=== PATIENT | female | born 1990 | race Hispanic/Latino ===

== ENCOUNTER 2018-02-27 09:39 | Emergency (ER) | payer OTHER, SELFPAY ==
[2018-02-27 09:58] VITALS: BP 133/86; PULSE 80; RESP 12; TEMP 36.3; O2SAT 100
--- NOTE | 2018-02-27 10:06 | ED_ITS ---
HPI - General Chief complaint: OB/Uterine Contractions Stated complaint: 6 wks -bleeding/cramping Time Seen by Provider: 02/27/18 10:04 Source: patient Mode of arrival: ambulatory Limitations: no limitations History of Present Illness HPI Narrative: Patient is a at approximately 6 weeks EGA by her last menstrual cycle with a positive home test a couple weeks ago here for evaluation of 2-3 days of increasing vaginal spotting to now bleeding at the amount of a normal menstrual cycle. Does have some lower back pain. No urinary symptoms. Patient : Yes Related Data Allergies Allergy/AdvReac Type Severity Reaction Status Date / Time No Known Drug Allergies Allergy Verified 02/27/18 10:01 Review of Systems Constitutional Denies fatigue, Denies fever(s) and Denies headache(s) ENT Ears, Nose, Mouth, and Throat: Denies vertigo and Denies headache(s) Cardiovascular Denies chest pain and Denies dyspnea Respiratory Denies dyspnea Gastrointestinal Gastrointestinal: Denies abdominal pain, Reports cramping, Denies heartburn, Denies diarrhea, Denies nausea and Denies vomiting Genitourinary Comments: Vaginal bleeding at the amount of a normal menstrual cycle Musculoskeletal Denies myalgias and Denies arthralgias Integumentary/Breasts Denies lesions, Denies rash and Denies wounds Neurologic Denies vertigo and Denies headache(s) Endocrine Denies fatigue Hematologic/Lymphatic Denies easy bleeding and Denies easy bruising PMFSH - Past Medical History Medical history: Reports no medical history Surgical history: Reports no surgical history [employer] history: Denies Spontaneous Patient : Yes Exam Initial Vital Signs Initial Vital Signs: Vital Signs Temperature 97.3 F L 02/27/18 09:58 Pulse Rate 80 02/27/18 09:58 Respiratory Rate 12 02/27/18 09:58 Blood Pressure 133/86 H 02/27/18 09:58 Pulse Oximetry 100 02/27/18 09:58 Const General: cooperative, healthy appearing, comfortable, well developed and well groomed HENAZ Head: normal to inspection, normocephalic and atraumatic Resp Effort & Inspection: normal respiratory effort Cardio Rate: regular rate Rhythm: regular rhythm Pulses: radial pulses present GI Inspection: normal to inspection and non-distended Palpation: soft, No firm and No tender Back/Spine/Pelvis Back: No CVA tenderness Skin General: no rashes or lesions noted Lesions: no lesions Rashes: no rashes Neuro General: alert, awake and oriented x3 Cognition: normal cognition Speech: speech normal Extrem General: normal to inspection and normal exam except as noted Course Orders Ordered: ED Orders 02/27/18 10:05 US pelvic complete Stat 02/27/18 10:18 ABO RH Type Stat HCG Quantitative Stat Vital Signs - 8 hr 02/27/18 09:58 02/27/18 11:24 Temperature 97.3 F L 98 F Pulse Rate 80 69 Respiratory Rate 12 18 Blood Pressure 133/86 H Blood Pressure [Left Arm] 123/73 H Pulse Oximetry 100 98 MDM - OB/Uterine Contractions Lab Data Attestation: I reviewed the patient's lab results. Lab Results 02/27/18 02/27/18 Range/Units 10:18 10:18 HCG, Quant 107.32 mIU/mL Blood Type A Positive MDM Narrative Medical decision making narrative: Patient with an HCG quant today of just over 100 in the setting of having a positive test 2 weeks ago is concerning for a threatened miscarriage. Patient states she had plans on calling her OB provider on Thursday for follow-up. She was instructed to continue to do this to establish follow-up care. She was given return precautions. She expressed understanding and agreement with plan. Will hold on pelvic ultrasound for now secondary to the low HCG quant. Discharge Plan Departure Patient Disposition: Home, Self-Care Clinical Impression: Threatened Instructions: Dealing With Miscarriage, DI for Miscarriage Activity Restrictions/Additional Instructions: Would recommend that you call your OB provider on Thursday to discuss further workup. Return to the emergency department for any new symptoms, worsening pain , bleeding more than 1 pad an hour for more than 4 consecutive hours fevers, or any other concerning symptoms. Recommend that you continue taking your vitamins.
[2018-02-27 11:11] LABS: HCG Quantitative /Beta subunit 107.32 mIU/mL
[2018-02-27 11:24] VITALS: BP 123/73; PULSE 69; RESP 18; TEMP 36.6; O2SAT 98
== END 2018-02-27 11:47 | disposition home or self-care (01) ==
PROVIDERS: Emergency Provider Emergency Medicine
DX: O20.0 Threatened abortion (principal)
CPT/HCPCS: 36415; 84702; 86900; 86901; 99282; 99284

== ENCOUNTER 2018-12-16 02:13 | Outpatient (CLI) | payer OTHER, SELFPAY ==
[2018-12-16 02:45] LABS: RBC Urine None Seen (0-5/HPF)
[2018-12-16 02:46] LABS: Appearance Urine UA CLEAR; Bilirubin Urine UA NEGATIVE (NEGATIVE); Color Urine UA YELLOW; Glucose Urine UA NEGATIVE (Negative); Ketones Urine UA 1+ (NEGATIVE); Leukocyte Esterase Urine UA 1+ (NEGATIVE); Nitrite Urine UA NEGATIVE (Negative); Occult Blood Urine UA NEGATIVE (Negative); Protein Urine UA NEGATIVE (Negative); Urobilinogen Urine UA 0.2 E.U./dL (0.2)
[2018-12-16 03:24] LABS: Bacteria Urine Few (2-10); Culture Indicated Urine Specimen Cultured; Squamous Epithelial Cell Urine 0-1 /HPF (0-5/HPF); WBC Urine 1-5/HPF (0-5/HPF)
== END 2018-12-16 03:55 | disposition home or self-care (01) ==
LOC: OB 10:51
PROVIDERS: PCP Obstetrics & Gynecology; Visit Provider Obstetrics & Gynecology
DX: O47.9 False labor, unspecified (principal)
CPT/HCPCS: 59050; 81001; 84112; 87077; 87086; 87186; G0378; G0379